=== PATIENT | male | born 1990 | race Caucasian/White ===

== ENCOUNTER 2019-03-19 09:29 | Emergency (ER) | payer MEDICAID, SELFPAY ==
[2019-03-19 09:31] VITALS: BP 123/69; PULSE 88; RESP 14; TEMP 36.4; O2SAT 99; BMI 18.7
[2019-03-19 09:34] VITALS: O2SAT 100
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
[2019-03-19 11:02] VITALS: BP 131/89
== END 2019-03-19 11:11 | disposition home or self-care (01) ==
PROVIDERS: Emergency Provider Emergency Medicine; Family Provider Family Medicine; PCP Family Medicine
DX: S09.90XA Unspecified injury of head, initial encounter (principal); S00.31XA Abrasion of nose, initial encounter; S60.221A Contusion of right hand, initial encounter; S52.514A Nondisplaced fracture of right radial styloid process, initial encounter for closed fracture; S52.614A Nondisplaced fracture of right ulna styloid process, initial encounter for closed fracture; X58.XXXA Exposure to other specified factors, initial encounter; Y93.9 Activity, unspecified; Y92.9 Unspecified place or not applicable; Y99.9 Unspecified external cause status; E10.9 Type 1 diabetes mellitus without complications; Z79.4 Long term (current) use of insulin
CPT/HCPCS: 73130; 99284